=== PATIENT | female | born 1975 | race Caucasian/White ===

== ENCOUNTER 2024-01-02 12:20 | Outpatient (CLI) | payer BC, SELFPAY | END 2024-01-02 12:21 | disposition home or self-care (01) | LOC: NFLDREF 12:21 | PROVIDERS: Visit Provider Midwife | DX: Z01.419 Encounter for gynecological examination (general) (routine) without abnormal findings (principal); Z13.6 Encounter for screening for cardiovascular disorders | CPT/HCPCS: 80061 ==

== ENCOUNTER 2025-02-26 14:04 | Outpatient (CLI) | payer BC, SELFPAY ==
[2025-03-01 02:46] LABS: HPV Source Cervical
[2025-03-07 16:53] LABS: Pap Test Digital Imaging Done; Pap Test Reviewed by Pathologi Done
== END 2025-02-26 14:05 | disposition home or self-care (01) ==
PROVIDERS: Visit Provider Midwife
DX: Z12.4 Encounter for screening for malignant neoplasm of cervix (principal); E78.00 Pure hypercholesterolemia, unspecified; Z13.9 Encounter for screening, unspecified
CPT/HCPCS: 80061; 84439; 84443; 87624; 87625; 88141; 88142; 88175